=== PATIENT | male | born 1950 | race Caucasian/White ===

== ENCOUNTER 2021-02-01 10:40 | Emergency (ER) | payer OTHER ==
[~2021-02-01] VITALS: Ht 185.4 cm; Wt 99.8 kg
[~2021-02-01 10:40] MED LIST: SIMVASTATIN20 MG PO
[2021-02-01] MEDS ORDERED: ELIQUIS2.5 MG PO (10:50)
[2021-02-01 11:33] VITALS: BP 174/74
== END 2021-02-01 11:33 | disposition home or self-care (01) ==
LOC: M.ERS 10:40
DX: S61.412A Laceration without foreign body of left hand, initial encounter (principal); E78.00 Pure hypercholesterolemia, unspecified; Z79.899 Other long term (current) drug therapy; W26.0XXA Contact with knife, initial encounter; Y93.89 Activity, other specified; Y92.89 Other specified places as the place of occurrence of the external cause; Y99.8 Other external cause status

== ENCOUNTER 2021-02-11 14:34 | Emergency (ER) | payer OTHER ==
[~2021-02-11] VITALS: Ht 185.4 cm; Wt 99.8 kg
[~2021-02-11 14:34] MED LIST changes: +ELIQUIS2.5 MG PO
[2021-02-11 15:32] VITALS: BP 134/72
== END 2021-02-11 15:34 | disposition home or self-care (01) ==
LOC: M.ERS 14:34
DX: S61.412D Laceration without foreign body of left hand, subsequent encounter (principal); E78.00 Pure hypercholesterolemia, unspecified; Z48.02 Encounter for removal of sutures; Z79.899 Other long term (current) drug therapy; X58.XXXD Exposure to other specified factors, subsequent encounter